=== PATIENT | female | born 1990 | race Caucasian/White ===

== ENCOUNTER 2018-08-21 12:43 | Outpatient (CLI) | payer BC ==
--- NOTE | 2018-08-21 15:33 | MRI ---
NONCONTRAST MRI LUMBAR SPINE: Date: 08-21-18 History: Lumbar radiculopathy. Patient diagnosed with herniated disc three years ago and now two gabriela hs ago the patient again developed right lower extremity pain, numbness, and tingling. Comparison: None available. FINDINGS: Visualized retroperitoneal structures demonstrate a normal MRI appearance. Conus medullaris is normal in appearance and terminates at the level of the L1 vertebral body. There are scattered Schmorl's nodes in involving several lumbar vertebral bodies. Mild endplate degen erative change is seen at the L5-S1 level. Normal signal intensity is otherwise demonstrated througho ut the bone marrow. L1-2: There is mild broad based disc bulge with associated osteophyte formation resulting in slight e ffacement of the ventral aspect of the thecal sac. Neural foramina are patent. L2-3: There is minimal disc osteophyte complex without significant narrowing of the central spinal ca nal. Neural foramina are widely patent. L3-4: Minimal disc osteophyte complex is present. There is only slight effacement of the ventral aspe ct of the thecal sac. Neural foramina are patent. L4-5: There is no disc bulge or disc herniation. Mild facet degenerative changes are present at this level. Central spinal canal and neural foramina are patent. L5-S1: There is a prominent central and right paracentral disc extrusion with disc material migrating superiorly and noted to be posterior to the upper one-third of the L5 vertebral body. This does resu lt in mass effect on the central and right anterolateral aspect of the thecal sac. The most superior extent of the disc extrusion does encroach on the traversing right L5 nerve root but does not appear to displace or deform the nerve root. However, this disc extrusion does contact and displaces the rig ht S1 nerve root posteriorly within the thecal sac and also results in mild mass effect on the exited right S1 nerve root. There is mild bilateral neural foraminal narrowing. Facet degenerative changes are present. 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 This results in mass effect on the thecal sac as well as results in posterior displacement and mild deformity of the traversing right S1 nerve root. POS: ROSIE
== END 2018-08-21 12:44 | disposition home or self-care (01) ==
LOC: SCSMRI 12:43
PROVIDERS: ATTEND Neurological Surgery
DX: M54.16 Radiculopathy, lumbar region (principal); M51.27 Other intervertebral disc displacement, lumbosacral region; M43.8X8 Other specified deforming dorsopathies, sacral and sacrococcygeal region; G95.9 Disease of spinal cord, unspecified
CPT/HCPCS: 72148